=== PATIENT | female | born 1925 | race Caucasian/White ===

== ENCOUNTER 2016-09-01 04:03 | Observation (INO) | payer OTHER, MEDICARE ==
[~2016-09-01] VITALS: Ht 157.5 cm; Wt 92.7 kg
[~2016-09-01 04:03] MED LIST: ACET1TAB84 PO; ASPEC81 PO; IBUP600T44 PO; LSX20 PO; OXYC-57 PO; POTA10CA28 PO; PXL20 PO
[2016-09-01] MEDS ORDERED: ATOR-24 PO (04:13)
[2016-09-01] MEDS ORDERED: COEN100C11 PO (04:14)
[2016-09-01] MEDS ORDERED: MIRA1TAB3 PO (04:15)
[2016-09-01] MEDS ORDERED: PRED10TA PO ×2 (04:16→04:55)
[2016-09-01] MEDS ORDERED: MULTCAP33 PO (04:19)
[2016-09-01] MEDS ORDERED: VITBC PO (04:20)
[2016-09-01] MEDS ORDERED: MOUTLIQ83 PO (04:23)
[2016-09-01] MEDS ORDERED: BISA10SU3 PR (04:26)
[2016-09-01] MEDS ORDERED: BENZ10LO2 PO (04:27)
[2016-09-01] MEDS ORDERED: MECL1TAB40 PO (04:28)
[2016-09-01] MEDS ORDERED: MOML PO (04:30)
[2016-09-01] MEDS ORDERED: SODIENE RE (04:33)
[2016-09-01] MEDS ORDERED: SODIUM CHLORIDE 0.9% 500ML 500 ML IV STA (04:35)
[2016-09-01] MEDS ORDERED: GUAI100S75 PO (04:35)
[2016-09-01 05:14] LABS: BASO % 0.2 %; BASO ABS # 0.02 K/uL (0-0.2); COMPLETE YES; EOS % 0.5 %; HEMATOCRIT 40.1 % (37-47); IG% 0.4 %; LYMPH ABS # 0.48 K/uL (1.2-3.4); MEAN CELL VOLUME 86.6 fL (80-100); MEAN CORPUSCULAR HEMOGLOBIN 28.9 pg (25-34); MEAN CORPUSCULAR HGB CONC 33.4 g/dl (32-36); MEAN PLATELET VOLUME 10.6 fL (7.4-10.4); MONO % 3.5 %; NEUT % 89.4 %; PLATELET COUNT 176 K/uL (130-400); RED BLOOD COUNT 4.63 M/uL (4.2-5.4); WHITE BLOOD COUNT 8.04 K/uL (4.8-10.8)
[2016-09-01 05:32] LABS: ALT/SGPT 34 U/L (12-78); AST/SGOT 22 U/L (15-37); BLOOD UREA NITROGEN 16 mg/dl (7-18); BUN/CREATININE RATIO 20.3 (10-20); CALCIUM 8.3 mg/dl (8.5-10.1); CARBON DIOXIDE 27 mmol/L (21-32); CHLORIDE 107 mmol/L (98-107); CREATININE 0.81 mg/dl (0.60-1.20); GLUCOSE 141 mg/dl (70-99); POTASSIUM 4.3 mmol/L (3.5-5.1); SODIUM 141 mmol/L (136-145)
[2016-09-01 05:38] LABS: ALKALINE PHOSPHATASE 93 U/L (45-117)
--- NOTE | 2016-09-01 06:49 | DIAGNOSTIC IMAGING REPORT ---
CHEST ONE VIEW PORTABLE CLINICAL HISTORY: Shortness of breath COMPARISON STUDY: 08/31/2013 FINDINGS: The heart is enlarged. There is no overt failure. There is no lobar consolidation. There is a 9 mm right basilar nodule versus artifact. A follow-up PA and lateral study is recommended.[ IMPRESSION: 1. 9 mm right basilar nodule versus artifact. A follow-up PA and lateral study is recommended. 2. No evidence of lobar consolidation. No evidence of failure. Electronically signed by: Patrick Triana M.D. 09/01/2016 6:47 AM
--- NOTE | 2016-09-01 07:08 | EMERGENCY ROOM VISIT NOTE ---
History Report prepared by Fifi: Bird Mora Under the Supervision of: Dr. Meir Foote M.D. First contact with patient: 04:17 Chief Complaint: VOMITING Stated Complaint: Vomiting, r/o dehydration Nursing Triage Summary: pt states "I went to the ball game last night and I ate something that didn't agree with me and i've been upchucking all night." pt states she also has diarrhea and burning with urination. pt denies blood in BM or vomit. pt alert and oriented x4. denies pain. has cough and nasal congestion. lungs clear. pt states "I'm thirsty." History of Present Illness The patient is an 89 year old female who presents to the Emergency Room via EMS from [facility] with complaints of persistent vomiting since 2344 last night. The patient has been unable to keep fluids down and feels dehydrated. She also complains of diarrhea and burning with urination as per nursing notes. The patient has had cold symptoms for a few days now, including cough and congestion. She has leg pain, and is not sure if that is normal for her. The patient denies chest pain, shortness of breath, and abdominal pain. She does not have sick contacts. The patient does not wear oxygen at home. Source of History: patient, nursing staff Onset: 2344 last night Position: other (GI) Quality: other (vomiting) Timing: other (persistent) Associated Symptoms: + cough, + diarrhea, + urinary symptoms, No SOB, No abdominal pain, No chest pain Review of Systems See HPI for pertinent positives & negatives. A total of 10 systems reviewed and were otherwise negative. Past Medical & Surgical Medical Problems: (1) Visual problems Family History Patient reports no known family medical history. Social History Smoking Status: Never Smoker Occupation Status: retired Current/Historical Medications Scheduled Acetaminophen (Tylenol Arthritis Ext Rel), 650 MG PO Q8HR PRN Aspirin Enteric Coated (Ecotrin Or Generic *), 81 MG PO DAILY Atorvastatin (Lipitor), 40 MG PO DAILY Benzocaine-Menthol (Mouth-Thro (Cepacol Sore Throat), 1 MARY PO QID Coenzyme Q10 (Ubidecarenone) (Coq-10), 100 MG PO DAILY Mirabegron (Myrbetriq), 50 MG PO DAILY Multiple Vitamins W/ Minerals (Preservision Areds), 2 CAP PO DAILY Paroxetine (Paxil *), 10 MG PO DAILY Prednisone Tab (Prednisone), 10 MG PO DIRECTED Prednisone Tab (Prednisone), 20 MG PO DIRECTED Vitamin B Complex (Vitamin B Complex), 1 TAB PO DAILY Scheduled PRN Bisacodyl (Dulcolax), 1 SUPP SD DIRECTED PRN for no bm Guaifenesin (Siltussin Sa), 5 ML PO Q4 PRN for Cough Magnesium Hydroxide (Milk Of Magnesia), 30 ML PO Q2D PRN for no bm Meclizine HCl (Meclizine HCl), 12.5 MG PO DAILY PRN for dizziness Mouthwashes (Biotene Dry Mouth Oral Ri), 1 DOSE PO TID PRN for dry mouth Sodium Phosphates (Qc Enema), 1 DOSE RE DIRECTED PRN for no bm Allergies Uncoded Allergies: SULFA (Allergy, Unknown, unknown, 09/01/16) Physical Exam Vital Signs Date Time Temp Pulse Resp B/P Pulse Ox O2 Delivery O2 Flow Rate FiO2 09/01/16 07:33 92 Room Air 09/01/16 07:10 97 22 144/82 94 Room Air 09/01/16 06:19 93 20 142/75 96 Nasal Cannula 2.0 09/01/16 05:08 92 20 141/88 94 Nasal Cannula 2.0 09/01/16 04:15 92 Nasal Cannula 2.0 09/01/16 04:14 88 Room Air 09/01/16 04:09 36.9 99 18 164/76 90 Room Air Physical Exam GENERAL: Patient is elderly-appearing and in minimal distress. HEENT: No acute trauma, normocephalic atraumatic, mucous membranes dry, no nasal congestion, no scleral icterus. NECK: No stridor, no adenopathy, no meningismus, trachea is midline. LUNGS: No dyspnea. Diffuse mild wheezing. HEART: Regular rate and rhythm. No murmurs, rubs, gallops appreciated. ABDOMEN: Soft, nontender, bowel sounds positive, no masses appreciated, no peritonitis. BACK: No midline tenderness, no CVA tenderness EXTREMITIES: Normal motion all extremities, no cyanosis, no edema. NEUROLOGIC: Alert and oriented, no acute motor or sensory deficits, no focal weakness, cranial nerves grossly intact. SKIN: No rash, no jaundice, no diaphoresis. Medical Decision & Procedures ER Provider Diagnostic Interpretation: X ray results are stated below per my interpretation: Chest: 1 view: No infiltrate, no effusion, normal cardiac border. Laboratory Results 09/01/16 04:50 Red Blood Count 4.63, Mean Corpuscular Volume 86.6, Mean Corpuscular Hemoglobin 28.9, Mean Corpuscular Hemoglobin Concent 33.4, Mean Platelet Volume 10.6, Neutrophils (%) (Auto) 89.4, Lymphocytes (%) (Auto) 6.0, Monocytes (%) (Auto) 3.5, Eosinophils (%) (Auto) 0.5, Basophils (%) (Auto) 0.2, Neutrophils # (Auto) 7.19, Lymphocytes # (Auto) 0.48, Monocytes # (Auto) 0.28, Eosinophils # (Auto) 0.04, Basophils # (Auto) 0.02 09/01/16 04:50 Test 09/01/16 04:50 09/01/16 04:59 09/01/16 05:09 White Blood Count 8.04 K/uL (4.8-10.8) Red Blood Count 4.63 M/uL (4.2-5.4) Hemoglobin 13.4 g/dL (12.0-16.0) Hematocrit 40.1 % (37-47) Mean Corpuscular Volume 86.6 fL (80-100) Mean Corpuscular Hemoglobin 28.9 pg (25-34) Mean Corpuscular Hemoglobin Concent 33.4 g/dl (32-36) Platelet Count 176 K/uL (130-400) Mean Platelet Volume 10.6 fL (7.4-10.4) Neutrophils (%) (Auto) 89.4 % Lymphocytes (%) (Auto) 6.0 % Monocytes (%) (Auto) 3.5 % Eosinophils (%) (Auto) 0.5 % Basophils (%) (Auto) 0.2 % Neutrophils # (Auto) 7.19 K/uL (1.4-6.5) Lymphocytes # (Auto) 0.48 K/uL (1.2-3.4) Monocytes # (Auto) 0.28 K/uL (0.11-0.59) Eosinophils # (Auto) 0.04 K/uL (0-0.5) Basophils # (Auto) 0.02 K/uL (0-0.2) RDW Standard Deviation 44.1 fL (36.4-46.3) RDW Coefficient of Variation 14.0 % (11.5-14.5) Immature Granulocyte % (Auto) 0.4 % Immature Granulocyte # (Auto) 0.03 K/uL (0.00-0.02) Anion Gap 7.0 mmol/L (3-11) Est Creatinine Clear Calc Drug Dose 49.9 ml/min Estimated GFR () 74.6 Estimated GFR (Non- 64.4 BUN/Creatinine Ratio 20.3 (10-20) Calcium Level 8.3 mg/dl (8.5-10.1) Total Bilirubin 0.6 mg/dl (0.2-1) Direct Bilirubin 0.1 mg/dl (0-0.2) Aspartate Amino Transf (AST/SGOT) 22 U/L (15-37) Alanine Aminotransferase (ALT/SGPT) 34 U/L (12-78) Alkaline Phosphatase 93 U/L (45-117) Troponin I < 0.015 ng/ml (0-0.045) Pro-B-Type Natriuretic Peptide 109 pg/ml (0-1800) Total Protein 7.0 gm/dl (6.4-8.2) Albumin 3.4 gm/dl (3.4-5.0) Lipase 132 U/L (73-393) Bedside Lactic Acid Venous 1.02 mmol/L (0.90-1.70) Influenza Type A Antigen Neg for Influ A (NEG) Influenza Type B Antigen Neg for Influ B (NEG) Laboratory results as reviewed by me. Medications Administered Medications (Trade) Dose Ordered Sig/Yaquelin Route Start Time Stop Time Status Last Admin Dose Admin Sodium Chloride (Nss 500ml) 500 ml @ 999 mls/hr Q31M STAT IV 09/01/16 04:35 09/01/16 05:05 DC 09/01/16 05:07 999 MLS/HR ED Course 0430: The patient was evaluated in room A10. A complete history and physical exam was performed. 0435: NSS 500 ml @ 999 mls/hr. 0715: Discussed the case with the on-call hospitalist. The patient will be evaluated. Medical Decision Differential: Viral, Pharyngitis, Cellulitis, Pneumonia, Influenza, Meningitis, Sepsis, Bacteremia, UTI/Pyelonephritis, Endocrine, Toxicologic, amongst other pathologies entertained. 89 yr old female arrives from local assisted living for evaluation of SHOB and vomiting. No distress here but she is quite hypoxic which resolves with NC O2. CXR clear, labs unremarkable. Blood cultures sent but she has no clear evidence of bacterial infection. Flu negative. Suspect vomiting aspiration but without infiltrates I do not feel that automatic abx indicated. She is requiring NC O2 which is new for her and I feel will need to come in for monitoring. Stable throughout ED stay. Impression Primary Impression: Hypoxia Additional Impression: Vomiting Scribe Attestation The scribe's documentation has been prepared under my direction and personally reviewed by me in its entirety. I confirm that the note above accurately reflects all work, treatment, procedures, and medical decision making performed by me. Departure Information Referrals Antonieta Taylor (PCP) Patient Instructions A Signature Page, My [facility]
[2016-09-01] MEDS ORDERED: ACETAMINOPHEN 325 MG TAB PO PRN (08:15)
[2016-09-01] MEDS ORDERED: ALUMINUM/MAGNESIUM/SIMETH (MAALOX MAX) 30 ML UDC PO PRN (08:15)
[2016-09-01] MEDS ORDERED: HEPARIN SOD 5000 UNIT/0.5 ML CARP SQ SCH (08:15)
[2016-09-01] MEDS ORDERED: ONDANSETRON INJ 2 MG/ML 2 ML VIAL IV PRN (08:15)
[2016-09-01] MEDS ORDERED: MAGNESIUM HYDROXIDE SUSP 30 ML UDC PO PRN (08:15)
[2016-09-01] MEDS ORDERED: GUAIFENESIN SUGAR FREE 100 MG/5 ML UDC PO PRN (08:15)
[2016-09-01] MEDS ORDERED: [UNRECOGNIZED DRUG - OTHER] PO PRN (08:15)
--- NOTE | 2016-09-01 08:40 | History and Physical ---
History & Physical Date & Time of Service: Sep 01, 2016 at 08:16 Chief Complaint: Vomiting, r/o dehydration Primary Care Physician: Raymond Zamora M.D. History of Present Illness Source: patient, family Patient is a pleasant 89 y/o female, with PMHx of urinary incontinence, hyperlipidemia, and anxiety, who presents to the ED because of vomiting and diarrhea x 1 day. She is a resident of [facility]. Last night she attended a [employer] republic[employer] and patient states "the food did not sit well with my stomach." Per family member, Brandon told her they were sending the patient to the ED because she started having vomiting and diarrhea, on top of an ongoing cold x1 week. They were worried she had the flu. She is currently feeling well. She feels her cold is improving. She admits to a nonproductive cough. Patient denies any fever , chills, sweats, lightheadedness, dizziness, vision changes, CP, palpitations, edema, SOB, wheezing, abdominal pain, nausea, melena, numbness/tingling, weakness, muscle/joint pain, anxiety/depression, active bleeding, or new skin discoloration/changes. Past Medical/Surgical History Medical Problems: (1) Visual problems Status: Chronic Family History Patient reports no known family medical history. Social History Smoking Status: Never Smoker Occupational Status: retired Immunizations History of Influenza Vaccine: No History of Tetanus Vaccine?: Yes History of Pneumococcal: Unknown History of Hepatitis B Vaccine: No Multi-Drug Resistant Organisms History of MDRO: No Allergies Coded Allergies: Sulfa Antibiotics (Verified Allergy, Unknown, Unknown, 09/01/16) Home Medications Scheduled Acetaminophen (Tylenol Arthritis Ext Rel), 650 MG PO Q8HR PRN Aspirin Enteric Coated (Ecotrin Or Generic *), 81 MG PO DAILY Atorvastatin (Lipitor), 40 MG PO DAILY Benzocaine-Menthol (Mouth-Thro (Cepacol Sore Throat), 1 MARY PO QID Coenzyme Q10 (Ubidecarenone) (Coq-10), 100 MG PO DAILY Mirabegron (Myrbetriq), 50 MG PO DAILY Multiple Vitamins W/ Minerals (Preservision Areds), 2 CAP PO DAILY Paroxetine (Paxil *), 10 MG PO DAILY Prednisone Tab (Prednisone), 10 MG PO DIRECTED Prednisone Tab (Prednisone), 20 MG PO DIRECTED Vitamin B Complex (Vitamin B Complex), 1 TAB PO DAILY Scheduled PRN Bisacodyl (Dulcolax), [address] DIRECTED PRN for no bm Guaifenesin (Siltussin Sa), 5 ML PO Q4 PRN for Cough Magnesium Hydroxide (Milk Of Magnesia), 30 ML PO Q2D PRN for no bm Meclizine HCl (Meclizine HCl), 12.5 MG PO DAILY PRN for dizziness Mouthwashes (Biotene Dry Mouth Oral Ri), 1 DOSE PO TID PRN for dry mouth Sodium Phosphates (Qc Enema), 1 DOSE RE DIRECTED PRN for no bm Physical Exam Vital Signs Date Time Temp Pulse Resp B/P Pulse Ox O2 Delivery O2 Flow Rate FiO2 09/01/16 07:33 92 Room Air 09/01/16 07:10 97 22 144/82 94 Room Air 09/01/16 06:19 93 20 142/75 96 Nasal Cannula 2.0 09/01/16 05:08 92 20 141/88 94 Nasal Cannula 2.0 09/01/16 04:15 92 Nasal Cannula 2.0 09/01/16 04:14 88 Room Air 09/01/16 04:09 36.9 99 18 164/76 90 Room Air General Appearance: no apparent distress Head: normocephalic, atraumatic Eyes: normal inspection, PERRL ENT: hearing grossly normal Neck: supple Respiratory/Chest: lungs clear, no respiratory distress, no accessory muscle use Cardiovascular: regular rate, rhythm, no edema, normal peripheral pulses Abdomen/GI: normal bowel sounds, non tender, soft Back: normal inspection Extremities/Musculoskelatal: no calf tenderness, no pedal edema Neurologic/Psych: alert, normal mood/affect, oriented x 3 Skin: normal color, warm/dry, no rash Diagnostics Laboratory Results Results Past 24 Hours Test 09/01/16 04:50 09/01/16 04:59 09/01/16 05:09 Range/Units White Blood Count 8.04 4.8-10.8 K/uL Red Blood Count 4.63 4.2-5.4 M/uL Hemoglobin 13.4 12.0-16.0 g/dL Hematocrit 40.1 37-47 % Mean Corpuscular Volume 86.6 80-100 fL Mean Corpuscular Hemoglobin 28.9 25-34 pg Mean Corpuscular Hemoglobin Concent 33.4 32-36 g/dl Platelet Count 176 130-400 K/uL Mean Platelet Volume 10.6 7.4-10.4 fL Neutrophils (%) (Auto) 89.4 % Lymphocytes (%) (Auto) 6.0 % Monocytes (%) (Auto) 3.5 % Eosinophils (%) (Auto) 0.5 % Basophils (%) (Auto) 0.2 % Neutrophils # (Auto) 7.19 1.4-6.5 K/uL Lymphocytes # (Auto) 0.48 1.2-3.4 K/uL Monocytes # (Auto) 0.28 0.11-0.59 K/uL Eosinophils # (Auto) 0.04 0-0.5 K/uL Basophils # (Auto) 0.02 0-0.2 K/uL RDW Standard Deviation 44.1 36.4-46.3 fL RDW Coefficient of Variation 14.0 11.5-14.5 % Immature Granulocyte % (Auto) 0.4 % Immature Granulocyte # (Auto) 0.03 0.00-0.02 K/uL Sodium Level 141 136-145 mmol/L Potassium Level 4.3 3.5-5.1 mmol/L Chloride Level 107 98-107 mmol/L Carbon Dioxide Level 27 21-32 mmol/L Anion Gap 7.0 3-11 mmol/L Blood Urea Nitrogen 16 7-18 mg/dl Creatinine 0.81 0.60-1.20 mg/dl Est Creatinine Clear Calc Drug Dose 49.9 ml/min Estimated GFR () 74.6 Estimated GFR (Non- 64.4 BUN/Creatinine Ratio 20.3 10-20 Random Glucose 141 70-99 mg/dl Calcium Level 8.3 8.5-10.1 mg/dl Total Bilirubin 0.6 0.2-1 mg/dl Direct Bilirubin 0.1 0-0.2 mg/dl Aspartate Amino Transf (AST/SGOT) 22 15-37 U/L Alanine Aminotransferase (ALT/SGPT) 34 12-78 U/L Alkaline Phosphatase 93 45-117 U/L Troponin I < 0.015 0-0.045 ng/ml Pro-B-Type Natriuretic Peptide 109 0-1800 pg/ml Total Protein 7.0 6.4-8.2 gm/dl Albumin 3.4 3.4-5.0 gm/dl Lipase 132 73-393 U/L Bedside Lactic Acid Venous 1.02 0.90-1.70 mmol/L Influenza Type A Antigen Neg for Influ A NEG Influenza Type B Antigen Neg for Influ B NEG Microbiology Results 09/01/16 Blood Culture, Received Pending 09/01/16 Blood Culture, Received Pending Diagnostic Radiology CHEST ONE VIEW PORTABLE CLINICAL HISTORY: Shortness of breath COMPARISON STUDY: 08/31/2013 FINDINGS: The heart is enlarged. There is no overt failure. There is no lobar consolidation. There is a 9 mm right basilar nodule versus artifact. A follow-up PA and lateral study is recommended.[ IMPRESSION: 1. 9 mm right basilar nodule versus artifact. A follow-up PA and lateral study is recommended. 2. No evidence of lobar consolidation. No evidence of failure. Electronically signed by: Patrick Triana M.D. 09/01/2016 6:47 AM The status of this report is Signed. Draft = Not yet reviewed or approved by Radiologist. Signed = Reviewed and approved by Radiologist. Impression Assessment and Plan 89 y/o female, with PMHx of urinary incontinence, hyperlipidemia, and anxiety, who presents to the ED because of vomiting and diarrhea x 1 days. Vomiting/diarrhea: -Admit med/surg observation -Blood cultures pending -Clear liquid diet, advance as tolerated -On arrival to ED, patient was 88% on protocol -CXR did not show any acute findings. Did show 9 mm nodule vs artifact- per family, has been told about this previously. Has not had any follow-up -Follow CBC and PRP -Negative for flu Cold x1 week: -Continue Prednisone kyle from [place] -Continue Guaifenesin PRN for cough Urinary incontinence: -Continue Myrbetriq 50 mg PO daily -Patient follows [facility] -Complains of burning with urination, check U/A ADRIANE: -Does not wear BiPAP/CPAP Hyperlipidemia: -Continue Lipitor 40 mg PO daily Anxiety/depression: -Continue Paxil GI Prophylaxis: -Maalox PRN -IV Zofran PRN -Colace and/or Milk of Mag PRN DVT prophylaxis: -Heparin 5000 units SQ q12 hrs -JL and SCDs Code Status: -LEVEL V, DNR Level of Care Med/Surg Resuscitation Status DO NOT RESUSCITATE VTE Prophylaxis VTE Risk Assessment Done? Y/N: Yes Risk Level: Moderate Given or contraindicated: Unfractionated heparin SQ, T.E.D. Stockings, SCD's Reviewed: Pt Seen/Exam by LISA Hyman Notes, Labs, RAD History Agree with above PA H&P/PMH/PSH/SH/ROS except pt states she smoked cigarettes for 50 yrs. Daughter reports pt has had sputum production over the last week and has been wheezing off and on since last summer. SHe has never had PFTs or been on inhalers that she can recall. She feels better now, is tolerating full liquid diet. She does have a cough Constitutional: denies: fever EENTM: acknowledges: other (poor vision) Respiratory: positive: cough, wheezing Cardiovascular: denies chest pain Gastrointestinal/Abdominal: positive: diarrhea, nausea, vomiting, negative: abdominal pain All Other Systems: Reviewed and Negative General Appearance: WD/WN, no apparent distress, obese Eye Exam: bilateral eye normal inspection Ears, Nose, Throat: pharynx normal Neck: trachea midline Respiratory: no respiratory distress, no accessory muscle use, decreased breath sounds (throughout with crackles at right base and mild scattered exp wheezes) Cardiovascular: regular rate, rhythm, no edema, no gallop, no murmur Gastrointestinal: normal bowel sounds, non tender, soft Extremities: normal inspection, no pedal edema, no calf tenderness Neurologic/Psychiatric: alert, normal mood/affect, other (forgetful) Skin Characteristics: normal color, warm/dry Assessment/Plan Agree with above PA A/P with the following exceptions/additions: Acute hypoxemic respiratory failure: with 50 pack year smoking history, could have underlying COPD. -continue prednisone taper -repeat CXR PA/LAT in the AM to look for developing infiltrates and to reassess the 9 mm nodule -continue supplemental O2 and wean off as tolerated -should have formal PFTs as an outpatient -add on nebs Lung nodule RLL 9 mm -repeating CXR PA/LAT in the AM -if still present, recommend Chest CT as an outpt
[2016-09-01] MEDS ORDERED: POLYETHYLENE (MIRALAX) 17 GM PACK PO PRN (08:45)
[2016-09-01 08:55] VITALS: O2SAT 93; Ht 157.5 cm; Wt 92.7 kg
[2016-09-01] MEDS ORDERED: IV FLUIDS COMPLETED PRN (09:00)
[2016-09-01 09:30] VITALS: BP 128/73; PULSE 87; TEMP 36.7; O2SAT 92
[2016-09-01 11:09] LABS: PROTHROMBIN TIME (PATIENT) 11.2 SECONDS (9.0-12.0)
[2016-09-01] MEDS ORDERED: PNEUMOCOCCAL POLYSACCHARIDES 25 MCG/0.5 ML VIAL/SYR IM. ONE (11:15)
[2016-09-01] MEDS ORDERED: PNEUMOCOCCAL ADMINISTRATION CHARGE ONE (11:15)
[2016-09-01] MEDS: ASPIRIN 81 MG ECTAB PO SCH (11:45)
[2016-09-01] MEDS: ATORVASTATIN 20 MG TAB PO SCH (11:45)
[2016-09-01] MEDS: MIRABEGRON ER 25 MG TAB PO SCH (11:46)
[2016-09-01] MEDS: COUGH DROP (SUGAR FREE) LOZ 24 LOZ/1 BOX PO SCH ×4 (11:46→22:26)
[2016-09-01] MEDS: PAROXETINE 20 MG TAB PO SCH (11:47)
[2016-09-01 15:44] LABS: URINE APPEARANCE CLEAR (CLEAR); URINE BILIRUBIN NEG (NEG); URINE COLOR DK YELLOW; URINE EPITHELIAL CELL AUTO >30 /lpf (0-5); URINE NITRITE NEG (NEG); URINE SPECIFIC GRAVITY 1.022 (1.000-1.030); UROBILINOGEN NEG (NEG); ZZUR CULT IF INDIC CLEAN CATCH NO
[2016-09-01 15:46] VITALS: BP 110/62; PULSE 88; TEMP 37.3; O2SAT 91
[2016-09-01 15:48] LABS: MANUAL MICROSCOPIC REQUIRED? NO; REVIEW REQ? NO
[2016-09-01 16:00] VITALS: O2SAT 91
[2016-09-01 17:38] VITALS: TEMP 37.1
[2016-09-01] MEDS ORDERED: ALBUTEROL 0.083% NEBU SOLN 3 ML VIAL INH ONE (18:06)
[2016-09-01 19:54] VITALS: PULSE 87; O2SAT 92
[2016-09-01] MEDS: ALBUTEROL 0.083% NEBU SOLN 3 ML VIAL INH SCH (19:54)
[2016-09-01] MEDS: HEPARIN SOD 5000 UNIT/0.5 ML CARP SQ SCH (22:25)
[2016-09-02 00:23] VITALS: BP 121/69; PULSE 83; TEMP 37.1; O2SAT 90
[2016-09-02] MEDS: ALBUTEROL 0.083% NEBU SOLN 3 ML VIAL INH SCH ×2 (02:55→07:21)
[2016-09-02 02:56] VITALS: PULSE 83; O2SAT 91
[2016-09-02 07:24] VITALS: PULSE 84; O2SAT 91
[2016-09-02 07:24] LABS: HEMATOCRIT 37.1 % (37-47); MEAN CELL VOLUME 87.5 fL (80-100); MEAN CORPUSCULAR HEMOGLOBIN 29.2 pg (25-34); MEAN CORPUSCULAR HGB CONC 33.4 g/dl (32-36); MEAN PLATELET VOLUME 10.8 fL (7.4-10.4); PLATELET COUNT 162 K/uL (130-400); RED BLOOD COUNT 4.24 M/uL (4.2-5.4); WHITE BLOOD COUNT 9.13 K/uL (4.8-10.8)
[2016-09-02 08:01] LABS: BUN/CREATININE RATIO 18.2 (10-20); CREATININE 0.78 mg/dl (0.60-1.20); POTASSIUM 3.4 mmol/L (3.5-5.1)
[2016-09-02] MEDS ORDERED: POTASSIUM CHLORIDE 20 MEQ TABCR PO ONE (08:15)
--- NOTE | 2016-09-02 08:18 | DIAGNOSTIC IMAGING REPORT ---
CHEST 2 VIEWS ROUTINE CLINICAL HISTORY: Follow up nodule. Hypoxia. COMPARISON STUDY: Chest radiograph August 31, 2013 and September 01, 2016. FINDINGS: Lung volumes are normal. There is no pneumothorax or pleural effusion. Pulmonary vascularity is normal. Cardiomediastinal silhouette is stable. The possible right lower lung nodule shown on prior exam was not evident on this exam. This was likely artifactual. IMPRESSION: 1. No acute cardiopulmonary findings. 2. The possible right lower lung nodule shown on prior portable chest radiograph is not visualized on this exam and was likely artifactual. Electronically signed by: Reinier Montemayor M.D. 09/02/2016 8:16 AM
[2016-09-02 08:35] VITALS: BP 120/70; PULSE 84; TEMP 38.2; O2SAT 91
[2016-09-02] MEDS: ASPIRIN 81 MG ECTAB PO SCH (08:55)
[2016-09-02] MEDS: MIRABEGRON ER 25 MG TAB PO SCH (08:55)
[2016-09-02] MEDS: PAROXETINE 20 MG TAB PO SCH (08:55)
[2016-09-02] MEDS: ATORVASTATIN 20 MG TAB PO SCH (08:56)
[2016-09-02] MEDS: COUGH DROP (SUGAR FREE) LOZ 24 LOZ/1 BOX PO SCH (08:56)
[2016-09-02] MEDS: HEPARIN SOD 5000 UNIT/0.5 ML CARP SQ SCH (08:57)
[2016-09-02 10:25] VITALS: TEMP 37.2
[2016-09-02] MEDS ORDERED: PRVHFAIN INH (11:11)
--- NOTE | 2016-09-02 11:27 | Discharge Summary ---
Discharge Summary Admission Date: Sep 01, 2016 at 08:16 Discharge Date: Sep 02, 2016 Discharge Disposition: half-way facility Principal Diagnosis: Nausea/Vomiting, diarrhea Immunizations: Have You Had Influenza Vaccine: No History of Tetanus Vaccine?: Yes History of Pneumococcal: Unknown History of Hepatitis B Vaccine: No Procedures: CHEST 2 VIEWS ROUTINE CLINICAL HISTORY: Follow up nodule. Hypoxia. COMPARISON STUDY: Chest radiograph August 31, 2013 and September 01, 2016. FINDINGS: Lung volumes are normal. There is no pneumothorax or pleural effusion. Pulmonary vascularity is normal. Cardiomediastinal silhouette is stable. The possible right lower lung nodule shown on prior exam was not evident on this exam. This was likely artifactual. IMPRESSION: 1. No acute cardiopulmonary findings. 2. The possible right lower lung nodule shown on prior portable chest radiograph is not visualized on this exam and was likely artifactual. Electronically signed by: Reinier Montemayor M.D. 09/02/2016 8:16 AM The status of this report is Signed. Draft = Not yet reviewed or approved by Radiologist. Signed = Reviewed and approved by Radiologist. CHEST ONE VIEW PORTABLE CLINICAL HISTORY: Shortness of breath COMPARISON STUDY: 08/31/2013 FINDINGS: The heart is enlarged. There is no overt failure. There is no lobar consolidation. There is a 9 mm right basilar nodule versus artifact. A follow-up PA and lateral study is recommended.[ IMPRESSION: 1. 9 mm right basilar nodule versus artifact. A follow-up PA and lateral study is recommended. 2. No evidence of lobar consolidation. No evidence of failure. Electronically signed by: Patrick Triana M.D. 09/01/2016 6:47 AM The status of this report is Signed. Draft = Not yet reviewed or approved by Radiologist. Signed = Reviewed and approved by Radiologist. <AttendingPhy></AttendingPhy> <FamilyPhy>Antonieta Taylor</FamilyPhy> < PrimaryPhy>Raymond Zamora M.D.</PrimaryPhy> <UnitNumber>[id number]</UnitNumber > <VisitNumber>[id number] (María Watson ., PA-C) Medication Reconciliation New Medications: Albuterol (Ventolin Hfa) 60 Puffs/5400 Mcg Aers 2 PUFF INH Q4 for Shortness of Breath, #1 INHALER Continued Medications: Acetaminophen (Tylenol Arthritis Ext Rel) 650 Mg Cplt 650 MG PO Q8HR PRN Aspirin Enteric Coated (Ecotrin Or Generic *) 81 Mg Ectab 81 MG PO DAILY Atorvastatin (Lipitor) 40 Mg Tab 40 MG PO DAILY, TAB Benzocaine-Menthol (Mouth-Thro (Cepacol Sore Throat) 1 Neil Neil 1 NEIL PO QID Bisacodyl (Dulcolax) 10 Mg Sup 1 SUPP DE DIRECTED PRN for no bm, SUP Coenzyme Q10 (Ubidecarenone) (Coq-10) 100 Mg Cap 100 MG PO DAILY Guaifenesin (Siltussin Sa) 100 Mg/5 Ml Syp 5 ML PO Q4 PRN for Cough Magnesium Hydroxide (Milk Of Magnesia) 30 Ml Susp 30 ML PO Q2D PRN for no bm, ML Meclizine HCl (Meclizine HCl) 12.5 Mg Tab 12.5 MG PO DAILY PRN for dizziness for 10 Days, #10 TAB Mirabegron (Myrbetriq) 50 Mg Tab 50 MG PO DAILY Mouthwashes (Biotene Dry Mouth Oral Ri) 1 Liq Liq 1 DOSE PO TID PRN for dry mouth pt to swish and spit tid prn Multiple Vitamins W/ Minerals (Preservision Areds) 1 Cap Cap 2 CAP PO DAILY Paroxetine (Paxil *) 10 Mg Tab 10 MG PO DAILY Prednisone Tab (Prednisone) 10 Mg Tab 10 MG PO DIRECTED, TAB to take 10 mgon 09/03/16, 09/04/16,and on 09/06/16 [place] per [place] Sodium Phosphates (Qc Enema) 1 Jacqueline Jacqueline 1 DOSE RE DIRECTED PRN for no bm Vitamin B Complex (Vitamin B Complex) 1 Tab Tab 1 TAB PO DAILY Discontinued Medications: Prednisone Tab (Prednisone) 10 Mg Tab 20 MG PO DIRECTED, TAB to take 20mg for 3 days starting at 0900 on 08/31/16 then dose is reduced per the village spoke to Kandy Discharge Exam Review of Systems: Constitutional: No chills, No fatigue, No fever, No sweats, No weakness Respiratory: + cough, No hemoptysis, No shortness of breath, No sputum, No wheezing Cardiovascular: No chest pain, No edema, No palpitations Abdomen: No constipation, No diarrhea, No nausea, No pain, No vomiting Musculoskeletal: No calf pain, No joint pain, No muscle pain, No swelling Genitourinary - Female: No dysuria, No hematuria Neurologic: No numbness/tingling, No weakness Psychiatric: No anxiety, No depression symptoms Hematologic / Lymphatic: No abnormal bleeding/bruising Integumentary: No itch, No new/changing skin lesions, No rash Physical Exam: General Appearance: no apparent distress Eyes: normal inspection, PERRL ENT: hearing grossly normal Neck: supple Respiratory/Chest: lungs clear, no respiratory distress, no accessory muscle use Cardiovascular: regular rate, rhythm, no edema, normal peripheral pulses Abdomen / GI: normal bowel sounds, non tender, soft Extremities: no calf tenderness, no pedal edema Neurologic/Psychiatric: alert, normal mood/affect, oriented x 3 Skin: normal color, warm/dry, no rash (María Watson, PAJoseC) Hospital Course Patient is a pleasant 89 y/o female, with PMHx of urinary incontinence, hyperlipidemia, and anxiety, who presents to the ED because of vomiting and diarrhea x 1 day. She is a resident of [facility]. Last night she attended a [email or web address] party and patient states "the food did not sit well with my stomach." Per family member, [facility] told her they were sending the patient to the ED because she started having vomiting and diarrhea, on top of an ongoing cold x1 week. They were worried she had the flu. She is currently feeling well. She feels her cold is improving. She admits to a nonproductive cough. Patient denies any fever , chills, sweats, lightheadedness, dizziness, vision changes, CP, palpitations, edema, SOB, wheezing, abdominal pain, nausea, melena, numbness/tingling, weakness, muscle/joint pain, anxiety/depression, active bleeding, or new skin discoloration/changes. Vomiting/diarrhea: -Admit med/surg observation -Blood cultures, preliminary negative -Clear liquid diet, advance as tolerated -On arrival to ED, patient was 88% on protocol -CXR did not show any acute findings. Did show 9 mm nodule vs artifact- per family, has been told about this previously. Has not had any follow-up. --Repeated CXR right lower lung nodule not visualized, likely artifact -Recommend PFT as outpatient -2-step completed prior to discharge, no supplemental o2 needed -Follow CBC and PRP -Potassium repleted -Negative for flu Cold x1 week: -Continue Prednisone kyle from [facility] -Continue Guaifenesin PRN for cough Urinary incontinence: -Continue Myrbetriq 50 mg PO daily -Patient follows [facility] -Complains of burning with urination, check U/A- negative ADRIANE: -Does not wear BiPAP/CPAP Hyperlipidemia: -Continue Lipitor 40 mg PO daily Anxiety/depression: -Continue Paxil GI Prophylaxis: -Maalox PRN -IV Zofran PRN -Colace and/or Milk of Mag PRN DVT prophylaxis: -Heparin 5000 units SQ q12 hrs -JL and SCDs Code Status: -LEVEL V, DNR Dispo: -Discharge to [facility] Total Time Spent: Greater than 30 minutes This includes examination of the patient, discharge planning, medication reconciliation, and communication with other providers. (María Watson, LATHAC) Discharge Instructions Please refer to the electronic Patient Visit Report (Discharge Instructions) for additional information. (María Watson, ARLET) Follow-Up Follow-up with Dr. Zamora in 24-48 hrs Please follow-up/keep all of your subspecialty appointments. (María Watson, WALKER-C) Additional Copies To Raymond Zamora M.D. Reviewed: Pt Seen/Exam by , LISA Notes, Labs, RAD (Tatiana Hernandes MD) History Agree with above PA Discharge summary/ROS. Pt doing very well, ania po, no more N /V/D, repeat CXR PA and LAT this AM shows no PNA and the previously seen possible nodule is gone. She likely has underlying COPD given her 50 pack year smokng history and recommend PFTs as an outpatient. She was sent home with Rx for albuterol prn inhaler and to finish out her prednisone taper. SHe was not requiring O2 prior to discharge (Tatiana Hernandes MD) General Appearance: WD/WN, no apparent distress Eye Exam: bilateral eye normal inspection Ears, Nose, Throat: other (hard o fhearing) Neck: trachea midline Respiratory: lungs clear, normal breath sounds, no respiratory distress, no accessory muscle use Cardiovascular: regular rate, rhythm, no edema, no gallop, no murmur Gastrointestinal: normal bowel sounds, non tender (except mild TTP RLQ without guarding or rebound, no mass) Extremities: normal range of motion, non-tender, normal inspection, no pedal edema, no calf tenderness Neurologic/Psychiatric: alert, normal mood/affect, oriented x 3 Skin Characteristics: normal color, warm/dry (Tatiana Hernandes MD) Assessment/Plan Agree with above PA A/P with the following exceptions/additions: Acute hypoxemic respiratory failure: with 50 pack year smoking history, could have underlying COPD with superimposed mild aspiration pneumonitis from vomiting -continue prednisone taper -repeat CXR PA/LAT shows no nodule, no infiltrate -should have formal PFTs as an outpatient -albuterol prn N/V/D- resolved, likely viral gastroenteritis. Some mild residual RLQ abd pain that is not overly concerning. Temp falsely elevated at 38.3 and after removing 7 blankets as per RN and recheck was 37. (Tatiana Hernandes MD)
--- NOTE | 2016-09-02 11:28 | Discharge Instructions ---
Discharge Instructions Admission Reason for Admission: Vomiting (María Watson PA-C) Discharge Discharge Diagnosis / Problem: Nausea/Vomiting, diarrhea (María Watson PA-C) Discharge Diagnosis / Problem: Acute hypoxemic respiratory failure, suspected aspiration pneumonitis (Tatiana Hernandes MD) Discharge Goals Goal(s): Decrease discomfort, Diagnostic testing, Therapeutic intervention (María Watson PA-C) Activity Recommendations Activity Limitations: resume your previous activity . (María Watson PA-C) Instructions / Follow-Up Instructions / Follow-Up You may use Ventolin inhaler, 2 puffs every 4 hours as needed for shortness of breath or wheezing Continue your Prednisone kyle as directed by [facility] Please continue all other regular home medications as prescribed to you You need to follow-up with [facility] Provider within 24-48 hours It is recommended you have outpatient pulmonary function testing Please follow-up/keep all of your subspecialty appointments (María Watson PA-C) Current Hospital Diet Patient's current hospital diet: AHA Diet (Heart Healthy) (María Watson PA-C) Discharge Diet Recommended Diet: AHA Diet (Heart Healthy) (María Watson PA-C) Procedures Procedures Performed: 1. CXR (María Watson PA-C) Pending Studies Studies pending at discharge: no (María Watson PA-C) Laboratory Results Last 24 Hours Test 09/01/16 15:20 09/02/16 06:55 Urine Color DK YELLOW Urine Appearance CLEAR Urine pH 5.0 Urine Specific [place] 1.022 Urine Protein NEG Urine Glucose (UA) NEG Urine Ketones NEG Urine Occult Blood 2+ Urine Nitrite NEG Urine Bilirubin NEG Urine Urobilinogen NEG Urine Leukocyte Esterase NEG Urine WBC (Auto) 1-5 /hpf Urine RBC (Auto) 5-10 /hpf Urine Hyaline Casts (Auto) 1-5 /lpf Urine Epithelial Cells (Auto) >30 /lpf Urine Bacteria (Auto) NEG White Blood Count 9.13 K/uL Red Blood Count 4.24 M/uL Hemoglobin 12.4 g/dL Hematocrit 37.1 % Mean Corpuscular Volume 87.5 fL Mean Corpuscular Hemoglobin 29.2 pg Mean Corpuscular Hemoglobin Concent 33.4 g/dl RDW Standard Deviation 46.2 fL RDW Coefficient of Variation 14.4 % Platelet Count 162 K/uL Mean Platelet Volume 10.8 fL Sodium Level 140 mmol/L Potassium Level 3.4 mmol/L Chloride Level 106 mmol/L Carbon Dioxide Level 26 mmol/L Anion Gap 8.0 mmol/L Blood Urea Nitrogen 14 mg/dl Creatinine 0.78 mg/dl Est Creatinine Clear Calc Drug Dose 51.8 ml/min Estimated GFR () 78.1 Estimated GFR (Non- 67.4 BUN/Creatinine Ratio 18.2 Random Glucose 91 mg/dl Calcium Level 8.0 mg/dl (María Watson, LATHAC) Medical Emergencies . Who to Call and When: Medical Emergencies: If at any time you feel your situation is an emergency, please call 911 immediately. . (María Watson PA-C) Non-Emergent Contact Non-Emergency issues call your: Primary Care Provider Call Non-Emergent contact if: you have a fever, your pain is unusual for you, you have any medication questions . (María Waston, LATHAC) Past History Medical & Surgical History: (1) Hypoxia (2) Vomiting (María Watson PA-C) . "Provider Documentation" section prepared by María Watson. (María Watson PA-C) VTE Core Measure Inpt VTE Proph given/why not?: Unfractionated heparin SQ, T.E.D. Stockings, SCD 's (María Watson PA-C)
[2016-09-02 11:33] VITALS: BP 120/70; PULSE 84; TEMP 37.2; O2SAT 91
== END 2016-09-02 12:33 | disposition home or self-care (01) ==
LOC: ENRESERVTM → ENRESERVDT → CANRESERV → EDBD 04:03 → C.EDA 04:04 → C.MS2W 08:16
PROVIDERS: ADMIT Family Medicine; ATTEND Family Medicine
DX: R11.2 Nausea with vomiting, unspecified (principal); J96.01 Acute respiratory failure with hypoxia; R19.7 Diarrhea, unspecified; E78.5 Hyperlipidemia, unspecified; R32 Unspecified urinary incontinence; G47.33 Obstructive sleep apnea (adult) (pediatric); F41.8 Other specified anxiety disorders; R91.1 Solitary pulmonary nodule; Z79.82 Long term (current) use of aspirin; Z79.899 Other long term (current) drug therapy; Z66 Do not resuscitate; Z87.891 Personal history of nicotine dependence